=== PATIENT | male | born 1995 | race American Indian/Alaskan Native ===

== ENCOUNTER 2017-11-16 01:25 | Emergency (ER) | payer OTHER ==
[2017-11-16 01:47] VITALS: BP 142/86
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
[2017-11-16] MEDS ORDERED: TYLENOL PO ONE (04:36)
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
== END 2017-11-16 04:49 | disposition home or self-care (01) ==
LOC: ED 01:25
DX: S02.2XXA Fracture of nasal bones, initial encounter for closed fracture (principal); Y08.89XA Assault by other specified means, initial encounter; Y93.89 Activity, other specified; Y92.89 Other specified places as the place of occurrence of the external cause; Y99.8 Other external cause status
CPT/HCPCS: 70450; 70486